=== PATIENT | male | born 1945 | race Caucasian/White ===

== ENCOUNTER 2017-07-27 08:34 | Outpatient (CLI) | payer OTHER ==
--- NOTE | 2017-07-27 16:34 | NM ---
NUCLEAR MEDICINE [facility] BRAIN SCAN 07/27/17 HISTORY: 72-year-old male with Parkinson's disease. Right sided tremors. TECHNIQUE: 130 mg of potassium iodide administered PO. 4.9 millicuries of I-123 of Ioflupane injected IV. Axial brain SPECT. FINDINGS: There is relatively strong uptake in the right caudate nucleus, but weak uptake in the right putamen. In the contralateral left caudate nucleus, there is asymmetrically weak uptake, compared to the right . There is complete absence of uptake in the left putamen. IMPRESSION: Abnormal [facility]heer scan. Strongly positive for parkinsonism on the left, and weakly positive on the right. POS: [facility]
== END 2017-07-27 08:35 | disposition home or self-care (01) ==
LOC: NM 08:34
DX: G20 Parkinson's disease (principal); R94.02 Abnormal brain scan
CPT/HCPCS: 78607; A9584

== ENCOUNTER 2020-08-06 12:46 | Outpatient (CLI) | payer MEDICARE | END 2020-08-06 12:47 | disposition home or self-care (01) | LOC: BICULT 12:46 | PROVIDERS: ATTEND Internal Medicine Nephrology | DX: N18.30 Chronic kidney disease, stage 3 unspecified (principal); N28.1 Cyst of kidney, acquired | CPT/HCPCS: 76770 ==

== ENCOUNTER 2024-03-08 10:50 | Inpatient (IN) | payer MEDICARE ==
[2024-03-08] MEDS ORDERED: Iopamidol-370 76% 500 ML MDV (1 ML CHARGE) ONE (11:17)
[2024-03-09 00:29] VITALS: BMI 41.8
[2024-03-09] MEDS ORDERED: Labetalol HCl 100 MG/20 ML VIAL SLOW IVP PRN (02:13)
[2024-03-09] MEDS ORDERED: Dextrose 50% Abboject 50 ML SYRINGE SLOW IVP PRN (02:15)
[2024-03-09] MEDS ORDERED: Dextrose 5% in Water 1,000 ML IV PRN (02:15)
[2024-03-09] MEDS ORDERED: Glucagon 1 MG/ML KIT IM PRN (02:15)
[2024-03-09] MEDS: Furosemide 20 MG TAB PO SCH (14:11)
[2024-03-09] MEDS: rOPINIRole HCl 1 MG TAB PO SCH (14:11)
[2024-03-09] MEDS: Carvedilol 25 MG TAB PO SCH (14:11)
[2024-03-09] MEDS: Empagliflozin 25 MG TAB PO SCH (14:11)
[2024-03-09] MEDS: Glimepiride 4 MG TAB PO SCH (14:11)
[2024-03-09] MEDS: Pantoprazole DR 40 MG TAB PO SCH (14:11)
[2024-03-09 14:43] LABS: Troponin I Less than 0.010 ng/mL (< 0.028)
[2024-03-09 14:44] LABS: Clarity Clear (Clear); Glucose, Urine (Dipstick) >=1000 mg/dL (Negative); Leukocyte Negative Leu/uL (Negative); Nitrite Negative (Negative); Protein, Urine (Dipstick) Negative (Neg-Trace); Specific Gravity, Urine 1.032 (1.002-1.036); pH, Urine 5.5 (5.0-9.0)
[2024-03-09 14:45] LABS: ALT (SGPT) Less than 5 U/L (8-55); AST (SGOT) 10 U/L (5-34); Albumin 3.2 g/dL (3.4-4.8); Alkaline Phosphatase 64 U/L (40-110); Anion Gap 12 mmol/L (10-20); BUN (Urea Nitrogen) 32 mg/dL (8.4-25.7); Bilirubin Negative (Negative); Bilirubin, Total 0.6 mg/dL (0.2-1.2); Blood, Urine Negative (Negative); Calc. Creatinine Clearance 79 mL/min (70-130); Calcium 8.9 mg/dL (7.8-10.44); Carbon Dioxide 21 mmol/L (23-31); Chloride 107 mmol/L (98-107); Estimated GFR 45; Glucose 149 mg/dL (83-110); Ketone, Urine Negative (Negative); Potassium 4.1 mmol/L (3.5-5.1); Protein, Total 6.2 g/dL (5.8-8.1); Sodium 136 mmol/L (136-145); Urobilinogen Normal mg/dL (Less than 2); WBC/HPF 0-3 HPF (0-3)
[2024-03-09] MEDS: Carbidopa/Levodopa 10-100 mg Tablet PO SCH (16:10)
[2024-03-09] MEDS: Carbidopa/Levodopa CR 50-200 mg Tablet PO SCH (17:45)
[2024-03-09 18:10] LABS: INR-International Normal Ratio 1.1; PTT 25.4 sec (22.9-36.1)
[2024-03-09 18:11] LABS: #Basophils 0.05 10x3/uL (0.0-0.2); %Basophils 0.6 % (0.0-1.0); %Eosinophils 1.3 % (0.0-10.0); %Lymphocytes 17.7 % (21.0-51.0); %Monocytes 8.3 % (0.0-10.0); %Neutrophils 71.4 % (42.0-75.0); Hematocrit 40.2 % (42.0-52.0); Hemoglobin 12.9 g/dL (14.0-18.0); Mean Corpuscular HGB CONC 32.1 g/dL (32.0-36.0); Mean Corpuscular Hemoglobin 26.8 pg (27.0-31.0); Mean Corpuscular Volume 83.4 fL (78.0-98.0); Mean Platelet Volume 9.1 fL (7.4-10.4); Platelet Count 201 10x3/uL (130-400); RBC Distribution Width 14.7 % (11.5-14.5); Red Blood Cell (RBC) Count 4.82 mill/uL (4.70-6.10)
[2024-03-09] MEDS ORDERED: Atorvastatin Calcium 20 MG TAB PO SCH (21:00)
[2024-03-09] MEDS: Atorvastatin Calcium 40 MG TAB PO SCH (21:11)
[2024-03-10] MEDS ORDERED: hydrALAZINE 20 MG/ML VIAL SLOW IVP PRN (02:31)
[2024-03-10 04:05] LABS: #Basophils 0.07 10x3/uL (0.0-0.2); %Basophils 0.9 % (0.0-1.0); %Eosinophils 1.7 % (0.0-10.0); %Lymphocytes 18.4 % (21.0-51.0); %Monocytes 9.1 % (0.0-10.0); %Neutrophils 69.6 % (42.0-75.0); Hematocrit 43.9 % (42.0-52.0); Hemoglobin 13.9 g/dL (14.0-18.0); Mean Corpuscular HGB CONC 31.7 g/dL (32.0-36.0); Mean Corpuscular Hemoglobin 26.9 pg (27.0-31.0); Mean Corpuscular Volume 85.1 fL (78.0-98.0); Mean Platelet Volume 8.8 fL (7.4-10.4); Platelet Count 192 10x3/uL (130-400); RBC Distribution Width 14.6 % (11.5-14.5); Red Blood Cell (RBC) Count 5.16 mill/uL (4.70-6.10)
[2024-03-10 04:25] LABS: Anion Gap 13 mmol/L (10-20); BUN (Urea Nitrogen) 23 mg/dL (8.4-25.7); Calc. Creatinine Clearance 77 mL/min (70-130); Carbon Dioxide 23 mmol/L (23-31); Cardiac Risk 2.8 (Less than 4.5); Chloride 108 mmol/L (98-107); Cholesterol 116 mg/dl (< 200 Desired); Estimated GFR 44; Glucose 146 mg/dL (83-110); HDL Cholesterol 41 mg/dL (>60 Neg Risk); LDL Cholesterol, Calculated 50 mg/dL; Sodium 140 mmol/L (136-145); Triglycerides 127 mg/dL (Less than 150)
[2024-03-10] MEDS: Tamsulosin HCl 0.4 MG CAP PO SCH (08:46)
[2024-03-10] MEDS: Aspirin 81 mg Enteric Coated Tablet PO SCH (08:47)
[2024-03-10] MEDS: Lidocaine 2% Viscous Solution 10 ML, Aluminum & Magnesium Hydroxide 30 ML SSW SCH (14:46)
[2024-03-11 05:14] LABS: #Basophils 0.08 10x3/uL (0.0-0.2); %Basophils 1.2 % (0.0-1.0); %Eosinophils 2.5 % (0.0-10.0); Hematocrit 42.1 % (42.0-52.0); Hemoglobin 13.4 g/dL (14.0-18.0); Mean Corpuscular HGB CONC 31.8 g/dL (32.0-36.0); Mean Corpuscular Hemoglobin 26.8 pg (27.0-31.0); Mean Corpuscular Volume 84.2 fL (78.0-98.0); Mean Platelet Volume 8.9 fL (7.4-10.4); Platelet Count 194 10x3/uL (130-400); RBC Distribution Width 14.8 % (11.5-14.5)
[2024-03-11 05:47] LABS: Anion Gap 12 mmol/L (10-20); BUN (Urea Nitrogen) 30 mg/dL (8.4-25.7); Calc. Creatinine Clearance 61 mL/min (70-130); Calcium 8.9 mg/dL (7.8-10.44); Carbon Dioxide 25 mmol/L (23-31); Chloride 107 mmol/L (98-107); Estimated GFR 37; Glucose 113 mg/dL (83-110); Sodium 140 mmol/L (136-145)
[2024-03-11] MEDS: Ondansetron PF 4 MG/2 ML Vial IVP PRN (17:24)
[2024-03-12] MEDS: Sodium Chloride 0.9% 1,000 ML IV SCH ×2 (04:04→15:16)
[2024-03-12 04:49] LABS: #Basophils 0.04 10x3/uL (0.0-0.2); #Eosinophils Less than 0.03 10x3/uL (0.0-0.7); %Basophils 0.7 % (0.0-1.0); %Eosinophils 0.2 % (0.0-10.0); %Lymphocytes 8.7 % (21.0-51.0); %Monocytes 7.4 % (0.0-10.0); %Neutrophils 82.5 % (42.0-75.0); Hemoglobin 13.1 g/dL (14.0-18.0); Mean Corpuscular Hemoglobin 27.2 pg (27.0-31.0); Mean Corpuscular Volume 85.2 fL (78.0-98.0); Mean Platelet Volume 8.7 fL (7.4-10.4); Platelet Count 183 10x3/uL (130-400); Red Blood Cell (RBC) Count 4.81 mill/uL (4.70-6.10)
[2024-03-12 05:19] LABS: Anion Gap 12 mmol/L (10-20); BUN (Urea Nitrogen) 35 mg/dL (8.4-25.7); Calc. Creatinine Clearance 50 mL/min (70-130); Calcium 8.9 mg/dL (7.8-10.44); Carbon Dioxide 23 mmol/L (23-31); Chloride 103 mmol/L (98-107); Estimated GFR 29; Glucose 150 mg/dL (83-110); Potassium 4.1 mmol/L (3.5-5.1); Sodium 134 mmol/L (136-145)
[2024-03-12] MEDS: Insulin Regular, Human 100 UNIT/ML 10 ML VIAL SC PRN (13:17)
[2024-03-12 15:10] VITALS: BMI 38.5
[2024-03-13 04:22] LABS: #Basophils 0.05 10x3/uL (0.0-0.2); %Basophils 1.2 % (0.0-1.0); %Eosinophils 1.7 % (0.0-10.0); %Lymphocytes 25.9 % (21.0-51.0); %Monocytes 14.3 % (0.0-10.0); %Neutrophils 56.4 % (42.0-75.0); Mean Corpuscular HGB CONC 31.6 g/dL (32.0-36.0); Mean Corpuscular Volume 85.4 fL (78.0-98.0); Mean Platelet Volume 8.5 fL (7.4-10.4); Platelet Count 159 10x3/uL (130-400); RBC Distribution Width 15.1 % (11.5-14.5); Red Blood Cell (RBC) Count 4.45 mill/uL (4.70-6.10)
[2024-03-13 05:11] LABS: Anion Gap 11 mmol/L (10-20); BUN (Urea Nitrogen) 34 mg/dL (8.4-25.7); Calc. Creatinine Clearance 58 mL/min (70-130); Calcium 8.4 mg/dL (7.8-10.44); Carbon Dioxide 24 mmol/L (23-31); Chloride 104 mmol/L (98-107); Estimated GFR 35; Glucose 109 mg/dL (83-110); Potassium 3.8 mmol/L (3.5-5.1); Sodium 135 mmol/L (136-145)
[2024-03-13] MEDS ORDERED: Furosemide 20 MG TAB PO SCH (09:00)
[2024-03-13 11:27] LABS: Acetaminophen Less than 10 mcg/mL (Less than 10); Alcohol Less than 10.0 mg/dL (Less than 10); Salicylate Less than 8.0 mg/dL (Less than 8.0)
[2024-03-14 04:25] LABS: #Basophils 0.05 10x3/uL (0.0-0.2); %Basophils 1.1 % (0.0-1.0); %Eosinophils 3.2 % (0.0-10.0); %Lymphocytes 28.3 % (21.0-51.0); %Monocytes 12.7 % (0.0-10.0); %Neutrophils 54.5 % (42.0-75.0); Mean Corpuscular HGB CONC 31.6 g/dL (32.0-36.0); Mean Corpuscular Hemoglobin 26.8 pg (27.0-31.0); Mean Corpuscular Volume 84.8 fL (78.0-98.0); Mean Platelet Volume 8.7 fL (7.4-10.4); Platelet Count 171 10x3/uL (130-400); RBC Distribution Width 14.7 % (11.5-14.5); Red Blood Cell (RBC) Count 4.48 mill/uL (4.70-6.10)
[2024-03-14 04:52] LABS: Anion Gap 12 mmol/L (10-20); BUN (Urea Nitrogen) 26 mg/dL (8.4-25.7); Calc. Creatinine Clearance 72 mL/min (70-130); Calcium 8.7 mg/dL (7.8-10.44); Carbon Dioxide 23 mmol/L (23-31); Chloride 109 mmol/L (98-107); Estimated GFR 45; Glucose 111 mg/dL (83-110); Potassium 4.1 mmol/L (3.5-5.1); Sodium 140 mmol/L (136-145)
[2024-03-14] MEDS: Furosemide 20 MG TAB PO SCH (10:19)
[2024-03-14 12:45] VITALS: BP 146/73; TEMP 97.4
[2024-03-15] MEDS ORDERED: Furosemide 20 MG TAB PO SCH (09:00)
[2024-04-07] MEDS ORDERED: Tenecteplase 50 MG ONE (14:40)
== END 2024-03-14 14:56 | disposition still patient (30) | DRG 61 ==
LOC: ERS 10:50 → CCU 14:40 → 2SE 03-10 19:59
PROVIDERS: ADMIT Family Medicine; ATTEND Internal Medicine
DX: I63.9 Cerebral infarction, unspecified (principal); N17.0 Acute kidney failure with tubular necrosis; E87.1 Hypo-osmolality and hyponatremia; G81.94 Hemiplegia, unspecified affecting left nondominant side; N18.30 Chronic kidney disease, stage 3 unspecified; E88.09 Other disorders of plasma-protein metabolism, not elsewhere classified; N28.1 Cyst of kidney, acquired; E11.22 Type 2 diabetes mellitus with diabetic chronic kidney disease; G47.33 Obstructive sleep apnea (adult) (pediatric); J44.9 Chronic obstructive pulmonary disease, unspecified; I12.9 Hypertensive chronic kidney disease with stage 1 through stage 4 chronic kidney disease, or unspecified chronic kidney disease; G20.A1 Parkinson's disease without dyskinesia, without mention of fluctuations; N40.0 Benign prostatic hyperplasia without lower urinary tract symptoms; R47.1 Dysarthria and anarthria; R47.01 Aphasia; R29.710 NIHSS score 10; E78.5 Hyperlipidemia, unspecified; Z95.810 Presence of automatic (implantable) cardiac defibrillator; Z79.899 Other long term (current) drug therapy; Z79.84 Long term (current) use of oral hypoglycemic drugs; E66.9 Obesity, unspecified; Z68.38 Body mass index [BMI] 38.0-38.9, adult
CPT/HCPCS: 36415; 36416; 70450; 70496; 70498; 76770; 80048; 80053; 80061; 80307; 81001; 84443; 84484; 85025; 85610; 85730; 87428; 93005; 93306; 96374; J1815; J2405; J3101; J7030; Q9967